=== PATIENT | male | born 1985 | race Caucasian/White ===

== ENCOUNTER 2024-10-24 06:01 | Emergency (ER) | payer OTHER ==
[~2024-10-24] VITALS: Ht 193 cm; Wt 90.7 kg
[2024-10-24] MEDS ORDERED: LIDOCAINE 1%-EPI 1:100,000 20 ML VIAL ONE (06:09)
[2024-10-24] MEDS: LIDOCAINE 1%-EPI 1:100,000 50 ML VIAL IJ ONE (06:30)
[2024-10-24] MEDS: IV NS 0.9% 1,000 ML BAG IV ONE (06:30)
[2024-10-24 06:40] LABS: BASOPHILS % (AUTO) 0.1 % (0.0-2.0); EOSINOPHILS # (AUTO) 0.1 K/uL (0.0-0.7); EOSINOPHILS % (AUTO) 0.5 % (0.0-6.0); HEMATOCRIT 37 % (39-51); HEMOGLOBIN 12.7 g/dL (13.5-17.5); LYMPHOCYTES # (AUTO) 1.4 K/uL (0.8-4.8); LYMPHOCYTES % (AUTO) 8.5 % (20.0-44.0); MEAN CORPUSCULAR HEMOGLOBIN 30 PG (26.0-33.0); MEAN CORPUSCULAR HGB CONC 34 g/dl (31.0-36.0); MEAN CORPUSCULAR VOLUME 87 fL (80-96); MONOCYTES # (AUTO) 0.6 K/uL (0.1-1.30); MONOCYTES % (AUTO) 3.7 % (2.0-12.0); NEUTROPHILS # (AUTO) 14.9 K/uL (1.8-8.9); NEUTROPHILS % (AUTO) 87.2 % (43.0-81.0); PLATELET COUNT (AUTO) 266 K/uL (150-450); RED BLOOD CELL COUNT(AUTO) 4.25 MIL/uL (4.5-6.0); RED CELL DISTRIBUTION WIDTH 13.5 % (11.5-15.0); WHITE BLOOD COUNT (AUTO) 17.1 K/uL (4.3-11.0)
[2024-10-24 06:49] LABS: CALCIUM, SERUM 8.9 mg/dL (8.5-10.1); POTASSIUM 3.4 mmol/L (3.5-5.1)
[2024-10-24] MEDS ORDERED: VICODIN PO (08:26)
[2024-10-24] MEDS ORDERED: ONDA4TAB5 PO (08:26)
[2024-10-24 16:21] VITALS: BP 159/81; TEMP 98.5; O2SAT 99
== END 2024-10-24 16:22 | disposition short-term general hospital (02) ==
LOC: ER 06:06
DX: T81.19XA Other postprocedural shock, initial encounter (principal); R00.2 Palpitations; I10 Essential (primary) hypertension; Z88.2 Allergy status to sulfonamides; Z20.822 Contact with and (suspected) exposure to COVID-19; Y83.9 Surgical procedure, unspecified as the cause of abnormal reaction of the patient, or of later complication, without mention of misadventure at the time of the procedure; Y92.89 Other specified places as the place of occurrence of the external cause
CPT/HCPCS: 99291; 36430; 93005; 85025; 80048; 36415; 86850; 87426; 86923; 86922; J3490 ×2; J7030; A6403 ×2; P9016